=== PATIENT | female | born 1995 | race Caucasian/White ===

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

== ENCOUNTER 2018-02-23 09:58 | Emergency (ER) | payer OTHER ==
[2018-02-23 10:42] VITALS: TEMP 98; BMI 21.2
[2018-02-23] MEDS ORDERED: ALBUTEROL SO4 2.5/IPRATROPIUM 0.5 INH SOL 3 ML VIAL.NEB. NEB ONE ×2 (11:37→12:42)
[2018-02-23] MEDS ORDERED: predniSONE 20 MG TABLET (UD) ONE (11:37)
[2018-02-23] MEDS ORDERED: predniSONE 20 MG TABLET (UD) PO ONE (11:44)
[2018-02-23] MEDS: ALBUTEROL SO4 2.5/IPRATROPIUM 0.5 INH SOL 3 ML VIAL.NEB. NEB SCH ×3 (11:51→12:45)
--- NOTE | 2018-02-23 12:04 | PDOC ---
History of Present Illness - General Chief Complaint: Asthma Stated Complaint: ASTHMA Time Seen by Provider: 02/23/18 11:30 History Source: Patient Exam Limitations: No Limitations - History of Present Illness Initial Comments: 02/23/18 11:47 23 y/o female presents to the ED with c/o coughing, intermittent sob with coughing episodes x 3 days, and now with bilateral rib pain since this am worse with coughing and deep breathing. The pt states asthma since age 5 with multiple hospitalization without intubations. The patient states has been using her inhaler and nebulizer with minimal improvment of symptoms. The patient is followed by a auto driver at [facility] but was unable to get appt today. Pt has no c/o leg pain, swelling, smoking hx, recent sx/travel, exogenous estrogen usage, or clotting disorders. Timing/Duration: reports: other (3 days) Severity: reports: moderate Possible Cause: Yes: occasional episodes Modifying Factors: improves with: albuterol inhaler, albuterol nebulizer, coughing Associated Symptoms: reports: cough Past History - Travel Traveled outside of the country in the last 30 days: No - Past Medical History Allergies/Adverse Reactions: Allergies Allergy/AdvReac Type Severity Reaction Status Date / Time No Known Allergies Allergy Verified 02/23/18 10:39 Home Medications: Ambulatory Orders Albuterol 0.083% Nebulizer Ju [Ventolin 0.083%] 1 neb NEB Q4H PRN 02/23/18 Asthma: Yes COPD: No - Immunization History Immunization Up to Date: Yes - Suicide/Smoking/Psychosocial Hx Smoking Status: No Smoking History: Never smoked Number of Cigarettes Smoked Daily: 0 Cigars Per Day: 0 Information on smoking cessation initiated: No Hx Alcohol Use: No Drug/Substance Use Hx: No Patient Lives Alone: No Lives with/in: parents Review of Systems - Review of Systems Able to Perform ROS?: Yes Constitutional: No: Symptoms Reported HEENTM: No: Symptoms Reported Respiratory: Yes: Cough. No: Shortness of Breath Cardiac (ROS): No: Symptoms Reported ABD/GI: No: Symptoms Reported Musculoskeletal: No: Symptoms Reported Integumentary: No: Symptoms Reported Neurological: No: Symptoms reported *Physical Exam - Vital Signs Last Vital Signs Temp Pulse Resp BP Pulse Ox 98.0 F 97 H 18 124/81 99 02/23/18 10:40 02/23/18 10:40 02/23/18 10:40 02/23/18 10:40 02/23/18 11:05 - Physical Exam General Appearance: Yes: Nourished, Appropriately Dressed. No: Apparent Distress HEENT: positive: EOMI, STACEY, TMs Normal, Pharynx Normal. negative: Pale Conjunctivae Neck: positive: Supple Respiratory/Chest: positive: Lungs Clear, Normal Breath Sounds. negative: Respiratory Distress, Accessory Muscle Use, Wheezing Cardiovascular: positive: Regular Rhythm, Regular Rate. negative: Murmur Gastrointestinal/Abdominal: positive: Soft. negative: Tenderness Integumentary: positive: Normal Color, Warm, Moist Neurologic: positive: Motor Strength 5/5 (ambulatory) Moderate Sedation - Procedure Monitoring Vital Signs: Procedure Monitoring Vital Signs Temperature 98.0 F 02/23/18 10:40 Pulse Rate 97 H 02/23/18 10:40 Respiratory Rate 18 02/23/18 10:40 Blood Pressure 124/81 02/23/18 10:40 O2 Sat by Pulse Oximetry (%) 99 02/23/18 11:05 ED Treatment Course - RADIOLOGY Radiology Studies Ordered: Category Date Time Status CHEST PA & LAT [RAD] Stat Radiology 02/23/18 11:45 Ordered Medical Decision Making - Medical Decision Making 02/23/18 12:00 CC: sob, cough, rib pain x 3 days, hx [place], sees a specialist at [facility] Exam: LCTA, no wheezing, reproducible kellie rib pain Plan: douneb x 2, prednisone po, and then cxr, finish w/ duoneb 02/23/18 12:54 cxr -. pt states feeling better and has not had a coughing episode since arrival. Pt will be discharged home with prednisone po. *DC/Admit/Observation/Transfer Diagnosis at time of Disposition: Asthma exacerbation Qualifiers: Asthma severity: mild Asthma persistence: intermittent Qualified Code(s): J45.21 - Mild intermittent asthma with (acute) exacerbation - Discharge Dispostion Disposition: HOME Condition at time of disposition: Improved - Referrals - Patient Instructions Printed Discharge Instructions: Asthma -- Adult Additional Instructions: Please use inhaler as needed. Take Prednisone as prescribed starting tomorrow. Avoid going from inside to outside without covering you mouth/nose with a scarf to prevent bronchospasms. - Post Discharge Activity
[2018-02-23 13:26] VITALS: BP 110/55; PULSE 107
== END 2018-02-23 13:25 | disposition home or self-care (01) ==
LOC: JER 09:58
PROC: 3E0F7GC Introduction of Other Therapeutic Substance into Respiratory Tract, Via Natural or Artificial Opening (ICD-10-PCS; principal; 2018-02-23)
DX: J45.21 Mild intermittent asthma with (acute) exacerbation (principal)
CPT/HCPCS: 71046-TC-FY; 99283-25

== ENCOUNTER 2020-09-21 14:24 | Emergency (ER) | payer OTHER ==
[2020-09-21 14:38] VITALS: BP 119/70; PULSE 88; TEMP 97.8; BMI 21.2
[2020-09-21] MEDS ORDERED: PENICILLIN V POTASSIUM 500 MG TABLET PO ONE (15:29)
[2020-09-21] MEDS ORDERED: AMOX TR/POT CLAV 875MG/125MG TABLETS (FP) PO ONE (15:30)
[2020-09-21] MEDS ORDERED: AMOX TR/POT CLAV 875MG/125MG TABLETS (FP) ONE (15:31)
== END 2020-09-21 15:38 | disposition home or self-care (01) ==
LOC: JERFT 14:24
DX: K13.0 Diseases of lips (principal)
CPT/HCPCS: 99283-25